=== PATIENT | male | born 1965 | race Caucasian/White ===

== ENCOUNTER → 2022-06-11 | Day surgery (SDC) | payer MEDICARE ==
[2022-06-06 10:29] LABS: BASOPHILS % 0.3 % (0.0-1.0); EOSINOPHILS # (AUTO) 0.1 (0.0-0.4); EOSINOPHILS % 1.8 % (0.0-6.0); HEMATOCRIT 43.3 % (38.2-49.6); HEMOGLOBIN 14.3 g/dL (14.0-18.0); LYMPHOCYTES # (AUTO) 1.5 (1.0-3.2); LYMPHOCYTES % 25.2 % (18.0-39.1); MEAN CORPUSCULAR HEMOGLOBIN 29.6 pg (28-32); MEAN CORPUSCULAR VOLUME 89.6 fL (81-99); MONOCYTES # (AUTO) 0.4 (0.2-0.8); MONOCYTES % 7.1 % (4.4-11.3); NEUTROPHILS % 65.1 % (38.7-80.0); PLATELET COUNT 157 x10e3/uL (140-360); RED BLOOD COUNT 4.83 x10e6/uL (4.3-5.7); RED CELL DISTRIBUTION WIDTH 13.4 % (11.7-14.4)
[2022-06-06 10:42] LABS: ALBUMIN 3.7 g/dL (3.5-5.0); ALBUMIN/GLOBULIN RATIO 1.2 (0.8-2.0); ANION GAP 11.7 mmol/L (8-16); CALCIUM 8.6 mg/dL (8.4-10.2); CREATININE, SERUM 1.15 mg/dL (0.72-1.25); POTASSIUM 3.7 mmol/L (3.5-5.1)
[~2022-06-11] MED LIST: AMOXICILLIN500 MG PO; ATORVASTATIN CA10 MG PO; BENZTROPINE ME0.5 MG PO; CEFTRIAXONE 1 GM VIAL ONE; DEXAMETHASONE SOD PHOS INJ 4 MG/ML SDV ONE; FENTANYL CITRATE/PF 100MCG/2 ML INJ ONE; FLOMAX0.4 MG PO; GENTAMICIN 80MG/NS 100 ML 200 ML IV ONE; HYDROXYZINE HCL10 MG PO; IOPAMIDOL 370 MG/ML 100 ML INFUS..BTL INJ ONE; LIDOCAINE HCL 2% LOCAL INJ 5 ML SDV VIAL INJ ONE; MIDAZOLAM HCL 2 MG/2 ML VIAL ONE; MULTI-VITAMIN1 EACH PO; NITROFURANTOIN100 MG PO; OLANZAPINE5 MG PO; ONDANSETRON HCL INJ 2MG/ML 2ML 2 MG/ML VIAL ONE; POVIDONE IODINE 0.05% 0.05 % ML PO ONE; PROPOFOL IV EMULSION 10 MG/ML 20 ML VIAL ONE; SEVOFLURANE INHAL SOLN 250 ML PEN BTL ONE; TOPAMAX25 MG PO; VENLAFAXINE HCL75 MG PO
[2022-06-11 11:11] VITALS: BP 118/72
== END | disposition home or self-care (01) ==
LOC: OR 06:59
PROVIDERS: ATTEND Urology
DX: N20.0 Calculus of kidney (principal); N13.30 Unspecified hydronephrosis; N28.1 Cyst of kidney, acquired; Z46.6 Encounter for fitting and adjustment of urinary device; N39.0 Urinary tract infection, site not specified; N40.1 Benign prostatic hyperplasia with lower urinary tract symptoms; N13.8 Other obstructive and reflux uropathy; N28.89 Other specified disorders of kidney and ureter; N43.3 Hydrocele, unspecified; Q54.9 Hypospadias, unspecified; C44.41 Basal cell carcinoma of skin of scalp and neck; G47.33 Obstructive sleep apnea (adult) (pediatric); E78.5 Hyperlipidemia, unspecified; R00.1 Bradycardia, unspecified; H91.90 Unspecified hearing loss, unspecified ear; F31.9 Bipolar disorder, unspecified; F20.9 Schizophrenia, unspecified; F41.9 Anxiety disorder, unspecified; Z88.8 Allergy status to other drugs, medicaments and biological substances; Z01.810 Encounter for preprocedural cardiovascular examination; Z01.812 Encounter for preprocedural laboratory examination; Z01.818 Encounter for other preprocedural examination; Z79.899 Other long term (current) drug therapy
CPT/HCPCS: 36415; 52332; 52352; 74018; 74420; 80053; 83970; 84550; 85025; 88300; 93005; C1758; C1769; C1874; J0696; J1100; J1580; J2001; J2250; J2405; J2704; J3010; Q9967

== ENCOUNTER 2022-08-11 12:49 | Emergency (ER) | payer MEDICARE ==
[~2022-08-11] VITALS: Ht 172.7 cm; Wt 72.6 kg
[2022-08-11 13:43] LABS: BASOPHILS % 0.4 % (0.0-1.0); EOSINOPHILS # (AUTO) 0.1 (0.0-0.4); EOSINOPHILS % 1.8 % (0.0-6.0); HEMATOCRIT 45.6 % (38.2-49.6); HEMOGLOBIN 15.9 g/dL (14.0-18.0); LYMPHOCYTES # (AUTO) 1.5 (1.0-3.2); LYMPHOCYTES % 27.1 % (18.0-39.1); MEAN CORPUSCULAR HEMOGLOBIN 30.5 pg (28-32); MEAN CORPUSCULAR HGB CONC 34.9 g/dL (31-35); MEAN CORPUSCULAR VOLUME 87.5 fL (81-99); MONOCYTES # (AUTO) 0.5 (0.2-0.8); MONOCYTES % 8.1 % (4.4-11.3); NEUTROPHILS # (AUTO) 3.5 (2.1-6.9); NEUTROPHILS % 62.2 % (38.7-80.0); PLATELET COUNT 133 x10e3/uL (140-360); RED BLOOD COUNT 5.21 x10e6/uL (4.3-5.7); RED CELL DISTRIBUTION WIDTH 12.5 % (11.7-14.4)
[2022-08-11 13:45] LABS: CLARITY,URINE CLEAR (CLEAR); COLOR,URINE YELLOW (YELLOW); KETONES,URINE NEGATIVE (NEGATIVE); LEUKOCYTE ESTERASE ,URINE NEGATIVE (NEGATIVE); NITRITE,URINE NEGATIVE (NEGATIVE); PROTEIN,URINE DIPSTICK NEGATIVE (NEGATIVE); URINE UROBILINOGEN 0.2 mg/dL (0.2 - 1)
[2022-08-11 13:56] LABS: WBC,URINE (MAN) 0-5 /HPF (0-5)
[2022-08-11 14:01] LABS: ALBUMIN 4.3 g/dL (3.5-5.0); ALBUMIN/GLOBULIN RATIO 1.5 (0.8-2.0); CALCIUM 9.3 mg/dL (8.4-10.2); CREATININE, SERUM 1.22 mg/dL (0.72-1.25)
== END 2022-08-11 15:04 | disposition home or self-care (01) ==
LOC: ER 12:55
DX: R41.0 Disorientation, unspecified (principal); G47.10 Hypersomnia, unspecified
CPT/HCPCS: 36415; 74018; 80053; 81001; 85025; 99284

== ENCOUNTER → 2022-08-11 | Emergency (ER) | payer MEDICARE ==
[~2022-08-11] MED LIST changes: -CEFTRIAXONE 1 GM VIAL ONE; -DEXAMETHASONE SOD PHOS INJ 4 MG/ML SDV ONE; -FENTANYL CITRATE/PF 100MCG/2 ML INJ ONE; -GENTAMICIN 80MG/NS 100 ML 200 ML IV ONE; -IOPAMIDOL 370 MG/ML 100 ML INFUS..BTL INJ ONE; -LIDOCAINE HCL 2% LOCAL INJ 5 ML SDV VIAL INJ ONE; -MIDAZOLAM HCL 2 MG/2 ML VIAL ONE; -ONDANSETRON HCL INJ 2MG/ML 2ML 2 MG/ML VIAL ONE; -POVIDONE IODINE 0.05% 0.05 % ML PO ONE; -PROPOFOL IV EMULSION 10 MG/ML 20 ML VIAL ONE; -SEVOFLURANE INHAL SOLN 250 ML PEN BTL ONE
== END | disposition left against medical advice (07) ==
LOC: ER 12:56
DX: N39.0 Urinary tract infection, site not specified (principal)

== ENCOUNTER 2023-02-16 16:05 | Emergency (ER) | payer MEDICARE ==
[~2023-02-16] VITALS: Ht 172.7 cm; Wt 72.6 kg
[~2023-02-16 16:05] MED LIST changes: +CARBAMAZEPINE200 MG PO; +CEFUROXIME500 MG PO; +CRANBERRY/D-MANNOSE PO; +FISH OIL 1,2001 EACH PO; +VITAMIN D3125 MCG PO
[2023-02-16 16:10] VITALS: O2SAT 99
[2023-02-16] MEDS ORDERED: VESICARE5 MG PO (16:49)
[2023-02-16] MEDS ORDERED: VESICARE10 MG PO (17:33)
== END 2023-02-16 17:51 | disposition home or self-care (01) ==
LOC: ER 16:10
DX: Z46.6 Encounter for fitting and adjustment of urinary device (principal); T83.89XA Other specified complication of genitourinary prosthetic devices, implants and grafts, initial encounter; E78.5 Hyperlipidemia, unspecified; F20.9 Schizophrenia, unspecified; Z87.442 Personal history of urinary calculi
CPT/HCPCS: 99282

== ENCOUNTER 2023-10-30 11:51 | Emergency (ER) | payer MEDICARE ==
[~2023-10-30] VITALS: Ht 170.2 cm; Wt 68.0 kg
[~2023-10-30 11:51] MED LIST changes: +AMOX TR-K CLV1 EAC2 PO; +CARBAMAZEPINE100 M2 PO; +LIPITOR20 MG PO; +OXYBUTYNIN CHLOR5 MG PO; +TOPIRAMATE50 MG PO; +VESICARE10 MG PO; +VESICARE5 MG PO
[2023-10-30 13:48] VITALS: PULSE 61; RESP 18; TEMP 98
[2023-10-30 15:41] VITALS: BP 120/69; PULSE 60; RESP 16; TEMP 98; O2SAT 100
== END 2023-10-30 15:42 | disposition home or self-care (01) ==
LOC: ER 14:00
DX: Z46.6 Encounter for fitting and adjustment of urinary device (principal); N39.0 Urinary tract infection, site not specified; E78.5 Hyperlipidemia, unspecified; F20.9 Schizophrenia, unspecified; F79 Unspecified intellectual disabilities; Z87.442 Personal history of urinary calculi
CPT/HCPCS: 87086; 99282

== ENCOUNTER 2023-12-11 20:00 | Emergency (ER) | payer MEDICARE ==
[~2023-12-11] VITALS: Ht 170.2 cm; Wt 81.6 kg
[2023-12-11 20:50] VITALS: TEMP 98.4
[2023-12-11 23:30] VITALS: PULSE 55; RESP 16; O2SAT 99
== END 2023-12-11 23:45 | disposition home or self-care (01) ==
LOC: ER 20:10
DX: Z46.6 Encounter for fitting and adjustment of urinary device (principal); R14.0 Abdominal distension (gaseous); K76.0 Fatty (change of) liver, not elsewhere classified; N20.0 Calculus of kidney
CPT/HCPCS: 74176; 99283

== ENCOUNTER 2024-04-27 14:44 | Emergency (ER) | payer MEDICARE ==
[~2024-04-27] VITALS: Ht 170.2 cm; Wt 77.1 kg
[2024-04-27 15:20] VITALS: PULSE 72; RESP 18
[2024-04-27] MEDS ORDERED: VENLAFAXINE HC150 M1 (15:38)
[2024-04-27] MEDS ORDERED: LEVOFLOXACIN500 MG (15:38)
[2024-04-27] MEDS ORDERED: TOPIRAMATE ER100 M1 (15:38)
[2024-04-27] MEDS: SODIUM CHLORIDE 0.9% 1000ML 1,000 ML IV STA (16:51)
[2024-04-27 17:03] LABS: BASOPHILS % 0.4 % (0.0-1.0); EOSINOPHILS # (AUTO) 0.2 (0.0-0.4); EOSINOPHILS % 4.2 % (0.0-6.0); HEMATOCRIT 50.5 % (38.2-49.6); HEMOGLOBIN 16.3 g/dL (14.0-18.0); LYMPHOCYTES # (AUTO) 1.3 (1.0-3.2); LYMPHOCYTES % 25.1 % (18.0-39.1); MEAN CORPUSCULAR HEMOGLOBIN 31.5 pg (28-32); MEAN CORPUSCULAR HGB CONC 32.3 g/dL (31-35); MEAN CORPUSCULAR VOLUME 97.5 fL (81-99); MONOCYTES # (AUTO) 0.4 (0.2-0.8); MONOCYTES % 7.9 % (4.4-11.3); NEUTROPHILS # (AUTO) 3.1 (2.1-6.9); NEUTROPHILS % 62.2 % (38.7-80.0); PLATELET COUNT 122 x10e3/uL (140-360); RED BLOOD COUNT 5.18 x10e6/uL (4.3-5.7); RED CELL DISTRIBUTION WIDTH 12.5 % (11.7-14.4); WHITE BLOOD COUNT 5.05 x10e3/uL (4.8-10.8)
[2024-04-27 17:29] LABS: BILIRUBIN,URINE NEGATIVE (NEGATIVE); CLARITY,URINE CLOUDY (CLEAR); COLOR,URINE YELLOW (YELLOW); GLUCOSE, URINE NEGATIVE (NEGATIVE); KETONES,URINE NEGATIVE (NEGATIVE); LEUKOCYTE ESTERASE ,URINE MODERATE (NEGATIVE); NITRITE,URINE NEGATIVE (NEGATIVE); PH,URINE 7 (5 - 7); PROTEIN,URINE DIPSTICK NEGATIVE (NEGATIVE); URINE UROBILINOGEN 0.2 mg/dL (0.2 - 1)
[2024-04-27 17:31] LABS: BACTERIA,URINE FEW /HPF; EPITHELIAL CELLS,URINE FEW /LPF; RBC,URINE >50 /HPF (0-5); WBC,URINE (MAN) >50 /HPF (0-5)
[2024-04-27 17:33] LABS: ALANINE AMINOTRANSFERASE 20 IU/L (0-55); ALBUMIN 4.4 g/dL (3.5-5.0); ALBUMIN/GLOBULIN RATIO 1.3 (0.8-2.0); ALKALINE PHOSPHATASE 69 IU/L (40-150); BILIRUBIN,TOTAL 0.4 mg/dL (0.2-1.2); BLOOD UREA NITROGEN 17 mg/dL (7-26); BUN/CREATININE RATIO 15 (6-25); CALCIUM 9.4 mg/dL (8.4-10.2); CARBON DIOXIDE 22 mmol/L (22-29); CHLORIDE 109 mmol/L (98-107); CREATINE KINASE 90 IU/L (30-200); CREATININE, SERUM 1.14 mg/dL (0.72-1.25); EST GLOMERULAR FILTRATION RATE 75 ML/MIN (>=60); GLUCOSE 88 mg/dL (74-118); LIPASE 43 U/L (8-78); SODIUM 144 mmol/L (136-145); TOTAL PROTEIN 7.7 g/dL (6.5-8.1)
[2024-04-27 17:41] LABS: INR 0.91; PROTHROMBIN TIME 12.8 seconds (11.9-14.5)
[2024-04-27 17:42] LABS: PARTIAL THROMBOPLASTIN TIME 27.5 seconds (23.8-35.5)
[2024-04-27 17:46] LABS: TROPONIN I < 0.001 ng/mL (0-0.300)
[2024-04-27] MEDS ORDERED: CEFDINIR300 MG PO (17:50)
[2024-04-27 18:02] VITALS: BP 132/78; RESP 18; TEMP 97.2; O2SAT 100
[2024-04-27 18:03] VITALS: PULSE 78; TEMP 98.1
== END 2024-04-27 18:06 | disposition home or self-care (01) ==
LOC: ER 15:29
DX: Z46.6 Encounter for fitting and adjustment of urinary device (principal); N39.0 Urinary tract infection, site not specified; R10.32 Left lower quadrant pain; R32 Unspecified urinary incontinence; E78.5 Hyperlipidemia, unspecified; F20.9 Schizophrenia, unspecified; F79 Unspecified intellectual disabilities; Z87.442 Personal history of urinary calculi
CPT/HCPCS: 36415; 71045; 74176; 80053; 81001; 82550; 83690; 84484; 85025; 85610; 85730; 87086; 87186; 99284

== ENCOUNTER 2024-06-10 14:25 | Emergency (ER) | payer MEDICARE ==
[~2024-06-10] VITALS: Ht 170.2 cm; Wt 77.1 kg
[~2024-06-10 14:25] MED LIST changes: +CEFDINIR300 MG PO; +LEVOFLOXACIN500 MG; +TOPIRAMATE ER100 M1; +VENLAFAXINE HC150 M1
[2024-06-10 15:49] VITALS: PULSE 78; RESP 18; TEMP 98.7; O2SAT 98
[2024-06-10] MEDS ORDERED: CEFDINIR300 MG PO (15:56)
== END 2024-06-10 16:16 | disposition home or self-care (01) ==
LOC: ER 14:47
DX: Z46.6 Encounter for fitting and adjustment of urinary device (principal); E78.5 Hyperlipidemia, unspecified; F20.9 Schizophrenia, unspecified; F79 Unspecified intellectual disabilities; Z87.442 Personal history of urinary calculi
CPT/HCPCS: 51700; 87086; 87186; 99282

== ENCOUNTER 2024-08-25 14:10 | Inpatient (IN) | payer MEDICARE ==
[~2024-08-25] VITALS: Ht 170.2 cm; Wt 81.6 kg
[2024-08-25] MEDS ORDERED: VITAMIN B-1100 MG PO (14:41)
[2024-08-25] MEDS ORDERED: PROZAC20 MG PO (14:41)
[2024-08-25] MEDS ORDERED: [UNRECOGNIZED DRUG - OTHER] IM (14:41)
[2024-08-25] MEDS ORDERED: STOOL SOFTENER100 M1 PO (14:41)
[2024-08-25] MEDS ORDERED: VITAMIN C1000 MG PO (14:41)
[2024-08-25] MEDS ORDERED: ONDANSETRON HCL INJ 2MG/ML 2ML 2 MG/ML VIAL IV PRN (16:45)
[2024-08-25] MEDS ORDERED: HYDRALAZINE HCL 20 MG/ML VIAL IV PRN (16:45)
[2024-08-25] MEDS ORDERED: HYDROCODONE/APAP 5MG-325MG TAB PO PRN (16:45)
[2024-08-25] MEDS ORDERED: Morphine 2mg Syringe 2 MG/ML SYR IV PRN (16:45)
[2024-08-25 16:46] LABS: BASOPHILS % 0.2 % (0.0-1.0); HEMATOCRIT 35.8 % (38.2-49.6); HEMOGLOBIN 12.2 g/dL (14.0-18.0); LYMPHOCYTES # (AUTO) 0.6 (1.0-3.2); LYMPHOCYTES % 5.3 % (18.0-39.1); MEAN CORPUSCULAR HEMOGLOBIN 30.6 pg (28-32); MEAN CORPUSCULAR HGB CONC 34.1 g/dL (31-35); MEAN CORPUSCULAR VOLUME 89.7 fL (81-99); MONOCYTES # (AUTO) 0.8 (0.2-0.8); MONOCYTES % 7.3 % (4.4-11.3); NEUTROPHILS # (AUTO) 9.1 (2.1-6.9); NEUTROPHILS % 86.8 % (38.7-80.0); PLATELET COUNT 89 x10e3/uL (140-360); RED BLOOD COUNT 3.99 x10e6/uL (4.3-5.7); RED CELL DISTRIBUTION WIDTH 12.6 % (11.7-14.4); WHITE BLOOD COUNT 10.49 x10e3/uL (4.8-10.8)
[2024-08-25 17:00] VITALS: BP 117/63; PULSE 96; RESP 20; TEMP 99.5; O2SAT 97
[2024-08-25] MEDS: SODIUM CHLORIDE 0.9% 1000ML 1,000 ML IV SCH (17:12)
[2024-08-25 17:13] LABS: ALBUMIN 2.9 g/dL (3.5-5.0); ALBUMIN/GLOBULIN RATIO 1.1 (0.8-2.0); ANION GAP 13.7 mmol/L (8-16); BILIRUBIN,TOTAL 1.2 mg/dL (0.2-1.2); CREATININE, SERUM 1.06 mg/dL (0.72-1.25); MAGNESIUM 1.7 MG/DL (1.3-2.1); POTASSIUM 3.7 mmol/L (3.5-5.1); TOTAL PROTEIN 5.5 g/dL (6.5-8.1)
[2024-08-25 17:29] VITALS: PULSE 82; RESP 18; O2SAT 94
[2024-08-25 17:35] LABS: THYROID STIMULATING HORMONE 0.914 uIU/mL (0.350-4.940)
[2024-08-25 18:21] VITALS: BP 117/63; PULSE 96; RESP 18; TEMP 99.5; O2SAT 93
[2024-08-25 19:47] VITALS: PULSE 108; RESP 16; O2SAT 92
[2024-08-25 20:20] VITALS: BP 116/69; PULSE 98; RESP 20; TEMP 98.9; O2SAT 97
[2024-08-25 21:35] VITALS: BP 116/69; PULSE 98; RESP 20; TEMP 98.9; O2SAT 97
[2024-08-25 23:03] LABS: CLARITY,URINE CLEAR (CLEAR); COLOR,URINE YELLOW (YELLOW); LEUKOCYTE ESTERASE ,URINE SMALL (NEGATIVE); PH,URINE 6.5 (5 - 7)
[2024-08-25 23:04] LABS: BILIRUBIN,URINE NEGATIVE (NEGATIVE); GLUCOSE, URINE NEGATIVE (NEGATIVE); KETONES,URINE NEGATIVE (NEGATIVE); NITRITE,URINE NEGATIVE (NEGATIVE); PROTEIN,URINE DIPSTICK TRACE (NEGATIVE); URINE UROBILINOGEN 0.2 mg/dL (0.2 - 1)
[2024-08-25 23:09] LABS: BACTERIA,URINE MANY /HPF; EPITHELIAL CELLS,URINE FEW /LPF
[2024-08-26] VITALS (10 sets, daily range): BP systolic 106–148; BP diastolic 63–71; PULSE 74–114; RESP 16–20; TEMP 97.4–100.2; O2SAT 94–99
[2024-08-26] MEDS: ACETAMINOPHEN 325 MG TAB PO PRN (05:26)
[2024-08-26 07:29] LABS: BASOPHILS % 0.1 % (0.0-1.0); EOSINOPHILS % 0.1 % (0.0-6.0); HEMATOCRIT 34.9 % (38.2-49.6); HEMOGLOBIN 11.8 g/dL (14.0-18.0); LYMPHOCYTES # (AUTO) 0.7 (1.0-3.2); LYMPHOCYTES % 7.2 % (18.0-39.1); MEAN CORPUSCULAR HEMOGLOBIN 30.6 pg (28-32); MEAN CORPUSCULAR HGB CONC 33.8 g/dL (31-35); MEAN CORPUSCULAR VOLUME 90.6 fL (81-99); MONOCYTES # (AUTO) 0.7 (0.2-0.8); MONOCYTES % 7.7 % (4.4-11.3); NEUTROPHILS # (AUTO) 8.1 (2.1-6.9); NEUTROPHILS % 84.1 % (38.7-80.0); PLATELET COUNT 88 x10e3/uL (140-360); RED BLOOD COUNT 3.85 x10e6/uL (4.3-5.7); RED CELL DISTRIBUTION WIDTH 12.8 % (11.7-14.4); WHITE BLOOD COUNT 9.66 x10e3/uL (4.8-10.8)
[2024-08-26 07:55] LABS: ANION GAP 12.8 mmol/L (8-16); CALCIUM 7.8 mg/dL (8.4-10.2); CREATININE, SERUM 1.17 mg/dL (0.72-1.25); MAGNESIUM 1.8 MG/DL (1.3-2.1); POTASSIUM 3.8 mmol/L (3.5-5.1)
[2024-08-26] MEDS: DOCUSATE SODIUM 100 MG CAP PO SCH (08:48)
[2024-08-26] MEDS: SENNOSIDES 8.6 MG TAB PO SCH (08:48)
[2024-08-26 08:55] LABS: ALBUMIN 2.5 g/dL (3.5-5.0); BILIRUBIN,DIRECT 0.8 mg/dL (0.0-0.5); BILIRUBIN,TOTAL 1.2 mg/dL (0.2-1.2); TOTAL PROTEIN 5.3 g/dL (6.5-8.1)
[2024-08-26] MEDS ORDERED: OLANZAPINE 5 MG TAB PO PRN (10:00)
[2024-08-26] MEDS: CARBAMAZEPINE 100 MG TAB PO SCH (11:04)
[2024-08-26] MEDS: THIAMINE HCL 100 MG TAB PO SCH (11:05)
[2024-08-26] MEDS: OXYBUTYNIN CHLORIDE 5 MG TAB PO SCH (11:05)
[2024-08-26] MEDS: FLUOXETINE HCL 20 MG CAP PO SCH (11:05)
[2024-08-26] MEDS: ATORVASTATIN 20 MG TAB PO SCH (20:57)
[2024-08-26] MEDS: OLANZAPINE 5 MG TAB PO SCH (20:59)
[2024-08-27] VITALS (9 sets, daily range): BP systolic 107–122; BP diastolic 63–68; PULSE 73–86; RESP 16–18; TEMP 98.2–99; O2SAT 96–99
[2024-08-27 06:42] LABS: BASOPHILS % 0.2 % (0.0-1.0); EOSINOPHILS # (AUTO) 0.1 (0.0-0.4); EOSINOPHILS % 1.8 % (0.0-6.0); HEMATOCRIT 34.1 % (38.2-49.6); LYMPHOCYTES # (AUTO) 0.7 (1.0-3.2); LYMPHOCYTES % 11.6 % (18.0-39.1); MEAN CORPUSCULAR HGB CONC 32.3 g/dL (31-35); MEAN CORPUSCULAR VOLUME 96.1 fL (81-99); MONOCYTES # (AUTO) 0.4 (0.2-0.8); MONOCYTES % 7.5 % (4.4-11.3); NEUTROPHILS # (AUTO) 4.5 (2.1-6.9); NEUTROPHILS % 78.4 % (38.7-80.0); PLATELET COUNT 76 x10e3/uL (140-360); RED BLOOD COUNT 3.55 x10e6/uL (4.3-5.7); RED CELL DISTRIBUTION WIDTH 13.2 % (11.7-14.4); WHITE BLOOD COUNT 5.71 x10e3/uL (4.8-10.8)
[2024-08-27 07:30] LABS: ALBUMIN 2.3 g/dL (3.5-5.0); ALBUMIN/GLOBULIN RATIO 0.7 (0.8-2.0); BILIRUBIN,TOTAL 0.8 mg/dL (0.2-1.2); CALCIUM 7.9 mg/dL (8.4-10.2); CREATININE, SERUM 1.03 mg/dL (0.72-1.25); MAGNESIUM 1.9 MG/DL (1.3-2.1); TOTAL PROTEIN 5.4 g/dL (6.5-8.1)
[2024-08-27] MEDS: MULTIVITAMINS/MINERALS TAB PO SCH (08:55)
[2024-08-27] MEDS: ASCORBIC ACID 500 MG TAB PO SCH (08:56)
[2024-08-28] VITALS (7 sets, daily range): BP systolic 116–128; BP diastolic 65–74; PULSE 67–80; RESP 12–18; TEMP 98.4–99.5; O2SAT 95–100
[2024-08-28 06:30] LABS: BASOPHILS % 0.2 % (0.0-1.0); EOSINOPHILS # (AUTO) 0.1 (0.0-0.4); EOSINOPHILS % 2.4 % (0.0-6.0); HEMATOCRIT 32.9 % (38.2-49.6); HEMOGLOBIN 10.8 g/dL (14.0-18.0); LYMPHOCYTES # (AUTO) 0.9 (1.0-3.2); LYMPHOCYTES % 16.2 % (18.0-39.1); MEAN CORPUSCULAR HEMOGLOBIN 30.5 pg (28-32); MEAN CORPUSCULAR HGB CONC 32.8 g/dL (31-35); MEAN CORPUSCULAR VOLUME 92.9 fL (81-99); MONOCYTES # (AUTO) 0.4 (0.2-0.8); MONOCYTES % 6.8 % (4.4-11.3); NEUTROPHILS % 74.2 % (38.7-80.0); PLATELET COUNT 103 x10e3/uL (140-360); RED BLOOD COUNT 3.54 x10e6/uL (4.3-5.7); RED CELL DISTRIBUTION WIDTH 13.2 % (11.7-14.4); WHITE BLOOD COUNT 5.32 x10e3/uL (4.8-10.8)
[2024-08-28 07:05] LABS: ALBUMIN 2.3 g/dL (3.5-5.0); ALBUMIN/GLOBULIN RATIO 0.7 (0.8-2.0); ANION GAP 12.7 mmol/L (8-16); BILIRUBIN,TOTAL 0.6 mg/dL (0.2-1.2); CALCIUM 8.1 mg/dL (8.4-10.2); CREATININE, SERUM 1.09 mg/dL (0.72-1.25); POTASSIUM 3.7 mmol/L (3.5-5.1); TOTAL PROTEIN 5.6 g/dL (6.5-8.1)
[2024-08-28] MEDS: POLYETHYLENE GLYCOL 3350 17 GM PACK PO ONE (12:10)
[2024-08-29 00:55] VITALS: BP 114/64; PULSE 66; RESP 15; TEMP 98.4; O2SAT 98
[2024-08-29 03:55] VITALS: BP 112/68; PULSE 69; RESP 16; TEMP 98.2; O2SAT 98
[2024-08-29 06:40] LABS: BASOPHILS % 0.3 % (0.0-1.0); EOSINOPHILS # (AUTO) 0.2 (0.0-0.4); EOSINOPHILS % 3.1 % (0.0-6.0); HEMATOCRIT 32.9 % (38.2-49.6); HEMOGLOBIN 10.9 g/dL (14.0-18.0); LYMPHOCYTES # (AUTO) 0.9 (1.0-3.2); LYMPHOCYTES % 15.2 % (18.0-39.1); MEAN CORPUSCULAR HEMOGLOBIN 30.4 pg (28-32); MEAN CORPUSCULAR HGB CONC 33.1 g/dL (31-35); MEAN CORPUSCULAR VOLUME 91.9 fL (81-99); MONOCYTES # (AUTO) 0.4 (0.2-0.8); MONOCYTES % 7.3 % (4.4-11.3); NEUTROPHILS # (AUTO) 4.3 (2.1-6.9); NEUTROPHILS % 73.4 % (38.7-80.0); PLATELET COUNT 124 x10e3/uL (140-360); RED BLOOD COUNT 3.58 x10e6/uL (4.3-5.7); RED CELL DISTRIBUTION WIDTH 13.1 % (11.7-14.4); WHITE BLOOD COUNT 5.86 x10e3/uL (4.8-10.8)
[2024-08-29 07:08] LABS: ALBUMIN 2.4 g/dL (3.5-5.0); ALBUMIN/GLOBULIN RATIO 0.8 (0.8-2.0); ANION GAP 12.4 mmol/L (8-16); BILIRUBIN,TOTAL 0.7 mg/dL (0.2-1.2); CALCIUM 8.2 mg/dL (8.4-10.2); CREATININE, SERUM 0.99 mg/dL (0.72-1.25); TOTAL PROTEIN 5.6 g/dL (6.5-8.1)
[2024-08-29 07:13] LABS: POTASSIUM 3.4 mmol/L (3.5-5.1)
[2024-08-29 08:30] VITALS: BP 118/67; PULSE 72; RESP 20; TEMP 98.2; O2SAT 97
[2024-08-29 09:13] VITALS: BP 118/67; PULSE 72; RESP 20; TEMP 98.2; O2SAT 97
[2024-08-29 11:43] VITALS: BP 132/69; PULSE 75; RESP 20; TEMP 97; O2SAT 97
[2024-08-29 16:40] VITALS: BP 122/65; PULSE 75; RESP 19; TEMP 98.1; O2SAT 98
[2024-08-30] VITALS (9 sets, daily range): BP systolic 107–127; BP diastolic 61–81; PULSE 60–87; RESP 17–20; TEMP 97.7–99.2; O2SAT 95–100
[2024-08-30] MEDS: POLYETHYLENE GLYCOL 3350 17 GM PACK PO PRN (12:11)
[2024-08-30] MEDS: BISACODYL 10 MG SUPP PR PRN (12:12)
[2024-08-31] VITALS (8 sets, daily range): BP systolic 115–140; BP diastolic 62–71; PULSE 64–89; RESP 15–18; TEMP 97.7–99.2; O2SAT 95–99
[2024-08-31 06:14] LABS: BASOPHILS % 0.3 % (0.0-1.0); EOSINOPHILS # (AUTO) 0.2 (0.0-0.4); EOSINOPHILS % 2.9 % (0.0-6.0); HEMATOCRIT 35.8 % (38.2-49.6); HEMOGLOBIN 11.6 g/dL (14.0-18.0); LYMPHOCYTES % 15.9 % (18.0-39.1); MEAN CORPUSCULAR HEMOGLOBIN 30.6 pg (28-32); MEAN CORPUSCULAR HGB CONC 32.4 g/dL (31-35); MEAN CORPUSCULAR VOLUME 94.5 fL (81-99); MONOCYTES # (AUTO) 0.5 (0.2-0.8); MONOCYTES % 6.9 % (4.4-11.3); NEUTROPHILS # (AUTO) 4.8 (2.1-6.9); NEUTROPHILS % 73.2 % (38.7-80.0); PLATELET COUNT 186 x10e3/uL (140-360); RED BLOOD COUNT 3.79 x10e6/uL (4.3-5.7); RED CELL DISTRIBUTION WIDTH 13.3 % (11.7-14.4); WHITE BLOOD COUNT 6.53 x10e3/uL (4.8-10.8)
[2024-08-31 06:47] LABS: ANION GAP 13.9 mmol/L (8-16); CALCIUM 8.4 mg/dL (8.4-10.2); CREATININE, SERUM 1.09 mg/dL (0.72-1.25); MAGNESIUM 2.1 MG/DL (1.3-2.1); POTASSIUM 3.9 mmol/L (3.5-5.1)
[2024-08-31] MEDS ORDERED: ACETAMINOPHEN 1000 MG/100 ML 100 ML IV ONE (06:47)
[2024-08-31] MEDS ORDERED: PROPOFOL IV EMULSION 10 MG/ML 20 ML VIAL ONE ×2 (06:47→08:37)
[2024-08-31] MEDS ORDERED: LIDOCAINE HCL 2% LOCAL INJ 5 ML SDV VIAL INJ ONE (06:47)
[2024-08-31] MEDS ORDERED: SEVOFLURANE INHAL SOLN 250 ML PEN BTL ONE (06:47)
[2024-08-31] MEDS ORDERED: ONDANSETRON HCL INJ 2MG/ML 2ML 2 MG/ML VIAL ONE (06:48)
[2024-08-31] MEDS ORDERED: DEXAMETHASONE SOD PHOS INJ 4 MG/ML SDV ONE (06:48)
[2024-08-31] MEDS ORDERED: FENTANYL CITRATE/PF 100MCG/2 ML INJ ONE (06:48)
[2024-08-31] MEDS ORDERED: EPHEDRINE SULFATE INJ 50 MG/ML VIAL ONE (07:48)
[2024-08-31] MEDS ORDERED: ONDANSETRON HCL INJ 2MG/ML 2ML 2 MG/ML VIAL IV PRN (10:00)
[2024-08-31] MEDS ORDERED: ACETAMINOPHEN 1000 MG/100 ML IV PRN (10:00)
[2024-08-31] MEDS ORDERED: DIPHENHYDRAMINE HCL 25 MG CAP PO PRN (10:00)
[2024-08-31] MEDS: SODIUM CHLORIDE 0.9% 1000ML 1,000 ML IV SCH (11:43)
[2024-08-31] MEDS: ACETAMINOPHEN/CODEINE 300MG - 30MG TAB PO PRN (11:46)
[2024-08-31] MEDS: PHENAZOPYRIDINE HCL 100 MG TAB PO PRN (11:46)
[2024-09-01] VITALS (9 sets, daily range): BP systolic 109–130; BP diastolic 63–70; PULSE 65–87; RESP 16–18; TEMP 97.3–99.2; O2SAT 95–98
[2024-09-01 06:36] LABS: BASOPHILS % 0.2 % (0.0-1.0); EOSINOPHILS # (AUTO) 0.2 (0.0-0.4); EOSINOPHILS % 2.6 % (0.0-6.0); HEMOGLOBIN 11.3 g/dL (14.0-18.0); LYMPHOCYTES % 14.8 % (18.0-39.1); MEAN CORPUSCULAR HEMOGLOBIN 30.2 pg (28-32); MEAN CORPUSCULAR HGB CONC 31.4 g/dL (31-35); MEAN CORPUSCULAR VOLUME 96.3 fL (81-99); MONOCYTES # (AUTO) 0.5 (0.2-0.8); MONOCYTES % 7.3 % (4.4-11.3); NEUTROPHILS # (AUTO) 4.8 (2.1-6.9); NEUTROPHILS % 74.3 % (38.7-80.0); PLATELET COUNT 203 x10e3/uL (140-360); RED BLOOD COUNT 3.74 x10e6/uL (4.3-5.7); RED CELL DISTRIBUTION WIDTH 13.2 % (11.7-14.4); WHITE BLOOD COUNT 6.42 x10e3/uL (4.8-10.8)
[2024-09-01 07:04] LABS: ANION GAP 13.8 mmol/L (8-16); CALCIUM 8.1 mg/dL (8.4-10.2); CREATININE, SERUM 1.02 mg/dL (0.72-1.25); POTASSIUM 3.8 mmol/L (3.5-5.1)
[2024-09-02 03:18] VITALS: BP 112/62; PULSE 58; RESP 18; TEMP 98; O2SAT 96
[2024-09-02 07:52] VITALS: PULSE 78; RESP 16; O2SAT 97
[2024-09-02 07:54] VITALS: BP 148/77; PULSE 91; RESP 18; TEMP 97.8; O2SAT 97
[2024-09-02 08:29] VITALS: BP 148/77; PULSE 91; TEMP 97.8; O2SAT 97
[2024-09-02] MEDS ORDERED: PHENAZOPYRIDIN100 MG PO (09:49)
[2024-09-02] MEDS ORDERED: VITAMIN C1000 MG PO (09:49)
[2024-10-18] MEDS ORDERED: EFFEXOR XR150 MG PO (12:37)
[2024-10-18] MEDS ORDERED: VENLAFAXINE HCL75 MG PO (12:37)
== END 2024-09-02 12:09 | disposition home health service (06) | DRG 698 ==
LOC: MED/SURG3 14:10
PROVIDERS: ADMIT Internal Medicine; ATTEND Internal Medicine
PROC: 3E0333Z Introduction of Anti-inflammatory into Peripheral Vein, Percutaneous Approach (ICD-10-PCS; principal; 2024-08-25)
PROC: 0TJB8ZZ Inspection of Bladder, Via Natural or Artificial Opening Endoscopic (ICD-10-PCS; 2024-08-31)
PROC: BT141ZZ Fluoroscopy of Kidneys, Ureters and Bladder using Low Osmolar Contrast (ICD-10-PCS; 2024-08-31)
PROC: 0T2BX0Z Change Drainage Device in Bladder, External Approach (ICD-10-PCS; 2024-08-31)
PROC: 0TF3XZZ Fragmentation in Right Kidney Pelvis, External Approach (ICD-10-PCS; 2024-08-31 07:32)
PROC: 0VB03ZX Excision of Prostate, Percutaneous Approach, Diagnostic (ICD-10-PCS; 2024-08-31 07:32)
DX: T83.518A Infection and inflammatory reaction due to other urinary catheter, initial encounter (principal); A41.52 Sepsis due to Pseudomonas; F20.89 Other schizophrenia; Z16.24 Resistance to multiple antibiotics; N30.90 Cystitis, unspecified without hematuria; D69.6 Thrombocytopenia, unspecified; N20.0 Calculus of kidney; D64.9 Anemia, unspecified; N40.1 Benign prostatic hyperplasia with lower urinary tract symptoms; D50.9 Iron deficiency anemia, unspecified; R74.01 Elevation of levels of liver transaminase levels; N31.9 Neuromuscular dysfunction of bladder, unspecified; R33.8 Other retention of urine; R53.81 Other malaise; Z93.59 Other cystostomy status; R31.29 Other microscopic hematuria; E66.9 Obesity, unspecified; Z68.28 Body mass index [BMI] 28.0-28.9, adult; F31.9 Bipolar disorder, unspecified; R62.50 Unspecified lack of expected normal physiological development in childhood; Z88.8 Allergy status to other drugs, medicaments and biological substances
CPT/HCPCS: 36415; 50590; 71045; 74018; 74176; 80048; 80053; 80076; 81001; 82607; 82728; 82746; 83036; 83540; 83605; 83735; 84443; 84466; 85025; 87040; 87086; 87186; 88305; 94799; C1758; J0696; J1100; J2003; J2405; J2543; J3411; J7030

== ENCOUNTER → 2024-08-31 | Outpatient (REF) | payer MEDICARE ==
[~2024-08-31] MED LIST changes: +PHENAZOPYRIDIN100 MG PO; +PROZAC20 MG PO; +STOOL SOFTENER100 M1 PO; +VITAMIN B-1100 MG PO; +VITAMIN C1000 MG PO; +[UNRECOGNIZED DRUG - OTHER] IM
== END ==
LOC: US 08:00 → EDSTATUS 09-02 08:00
PROVIDERS: ATTEND Urology
DX: R33.9 Retention of urine, unspecified (principal); R39.14 Feeling of incomplete bladder emptying; N40.1 Benign prostatic hyperplasia with lower urinary tract symptoms; N39.0 Urinary tract infection, site not specified; R97.20 Elevated prostate specific antigen [PSA]; Z93.51 Cutaneous-vesicostomy status
CPT/HCPCS: 76872; 76998

== ENCOUNTER → 2024-10-21 | Day surgery (SDC) | payer MEDICARE ==
[2024-10-19 16:05] LABS: BASOPHILS % 0.2 % (0.0-1.0); EOSINOPHILS % 1.8 % (0.0-6.0); LYMPHOCYTES % 18.1 % (18.0-39.1); MONOCYTES % 8.0 % (4.4-11.3); NEUTROPHILS % 71.6 % (38.7-80.0); RED CELL DISTRIBUTION WIDTH 12.2 % (11.7-14.4)
[2024-10-19 16:38] LABS: EST GLOMERULAR FILTRATION RATE 86.0 ML/MIN (>=60)
[~2024-10-21] MED LIST changes: +ACETAMINOPHEN 1000 MG/100 ML 100 ML IV ONE; +EFFEXOR XR150 MG PO; +FENTANYL CITRATE/PF 100MCG/2 ML INJ ONE; +GENTAMICIN 80MG/NS 100 ML 200 ML IV ONE; +LIDOCAINE HCL 2% LOCAL INJ 5 ML SDV VIAL INJ ONE; +METOCLOPRAMIDE HCL 10 MG/2ML VIAL ONE; +MIDAZOLAM HCL 2 MG/2 ML VIAL ONE; +PROPOFOL IV EMULSION 10 MG/ML 20 ML VIAL ONE; +SEVOFLURANE INHAL SOLN 250 ML PEN BTL ONE
[2024-10-21] MEDS: PIPERACILLIN/TAZOBACTAM 3.375 GM VIAL ONE (06:40)
[2024-10-21] MEDS: SODIUM CHLORIDE 0.9% 1000ML 1,000 ML ONE (06:40)
[2024-10-21 09:42] VITALS: BP 127/76; PULSE 72; RESP 18; O2SAT 96
== END | disposition home or self-care (01) ==
LOC: OR 05:51
PROVIDERS: ATTEND Urology
DX: N20.0 Calculus of kidney (principal); R33.9 Retention of urine, unspecified; Z43.5 Encounter for attention to cystostomy; N39.0 Urinary tract infection, site not specified; R31.29 Other microscopic hematuria; N28.1 Cyst of kidney, acquired; E78.5 Hyperlipidemia, unspecified; F41.8 Other specified anxiety disorders; R00.1 Bradycardia, unspecified; F31.9 Bipolar disorder, unspecified; I45.10 Unspecified right bundle-branch block; D64.9 Anemia, unspecified; Z01.810 Encounter for preprocedural cardiovascular examination; Z01.812 Encounter for preprocedural laboratory examination; Z01.818 Encounter for other preprocedural examination
CPT/HCPCS: 36415; 50590; 51705; 74018; 80048; 84550; 85025; 87086; 87186; 93005; J0131; J1580; J2003; J2543; J2704; J2765; J3010; J7030; J2250

== ENCOUNTER 2024-11-02 14:39 | Emergency (ER) | payer MEDICARE ==
[~2024-11-02] VITALS: Ht 170.2 cm; Wt 80.3 kg
[~2024-11-02 14:39] MED LIST changes: -ACETAMINOPHEN 1000 MG/100 ML 100 ML IV ONE; -FENTANYL CITRATE/PF 100MCG/2 ML INJ ONE; -GENTAMICIN 80MG/NS 100 ML 200 ML IV ONE; -LIDOCAINE HCL 2% LOCAL INJ 5 ML SDV VIAL INJ ONE; -METOCLOPRAMIDE HCL 10 MG/2ML VIAL ONE; -MIDAZOLAM HCL 2 MG/2 ML VIAL ONE; -PROPOFOL IV EMULSION 10 MG/ML 20 ML VIAL ONE; -SEVOFLURANE INHAL SOLN 250 ML PEN BTL ONE
[2024-11-02 14:49] VITALS: TEMP 98.3
[2024-11-02 16:45] VITALS: PULSE 63; RESP 18; O2SAT 100
== END 2024-11-02 16:46 | disposition home or self-care (01) ==
LOC: ER 14:54
DX: T83.89XA Other specified complication of genitourinary prosthetic devices, implants and grafts, initial encounter (principal); T83.020A Displacement of cystostomy catheter, initial encounter; F20.9 Schizophrenia, unspecified; F79 Unspecified intellectual disabilities
CPT/HCPCS: 87086; 87186; 99282